=== PATIENT | female | born 2000 | race Hispanic/Latino ===

== ENCOUNTER 2020-10-17 18:22 | Emergency (ER) | payer BC, OTHER ==
[2020-10-17] MEDS ORDERED: Ketorolac 30 MG/ML SDV IM ONE (19:12)
--- NOTE | 2020-10-17 19:36 | EDM.PDOC ---
ED HPI GENERAL MEDICAL PROBLEM - General Chief Complaint: Neck Problem Stated Complaint: NECK PAIN/INJURY Time Seen by Provider: 10/17/20 18:58 Source of Information: Reports: Patient, RN Notes Reviewed History Limitations: Reports: No Limitations - History of Present Illness INITIAL COMMENTS - FREE TEXT/NARRATIVE: Patient is a 20-year-old female who presents to the ED for the evaluation of a neck injury. 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 Patient states she had immediate pain in the left side of her neck, and has subsequently been able to move her neck much at all due to a painful range of motion. Patient denies any jaw pain, no blurred vision double vision. She has a mild headache, neck stiffness, she is able to move all extremities without difficulty. She is not complaining of any numbness or tingling in the extremities. Patient denies any other sick-like symptoms, fever/chills, cough/shortness of breath, nausea/vomiting/diarrhea. Patient denies at this time. Neck Pain Score (Numeric/FACES): 8 - Related Data Allergies Allergy/AdvReac Type Severity Reaction Status Date / Time No Known Allergies Allergy Verified 10/17/20 19:01 Home Meds: Home Meds Orphenadrine [Norflex] 100 mg PO BID PRN #20 tab 10/17/20 [Rx] Past Medical History Neurological History: Reports: Concussion - Infectious Disease History Infectious Disease History: Reports: None - Past Surgical History HEENT Surgical History: Reports: Tonsillectomy Social & Family History - Family History Family Medical History: No Pertinent Family History - Tobacco Use Tobacco Use Status *Q: Never Tobacco User Second Hand Smoke Exposure: No - Caffeine Use Caffeine Use: Reports: Tea - Recreational Drug Use Recreational Drug Use: Yes Drug Use in Last 12 Months: Yes Recreational Drug Type: Reports: Marijuana/Hashish ED ROS GENERAL - Review of Systems Review Of Systems: Comprehensive ROS is negative, except as noted in HPI. ED EXAM, UPPER BACK/NECK PAIN - Physical Exam Exam: See Below Exam Limited By: No Limitations General Appearance: Alert, WD/WN, No Apparent Distress Eye Exam: Bilateral Eye: EOMI, Normal Inspection, PERRL Ears Exam: Normal External Exam, Normal Canal, Hearing Grossly Normal, Normal TMs Nose Exam: Normal Inspection Throat/Mouth Exam: Normal Inspection, Normal Lips, Normal Teeth, Normal Gums, Normal Oropharynx, Normal Voice, No Airway Compromise Head Exam: Atraumatic, Normocephalic Neck Exam: Limited Range of Motion (d/t pain and stiffness), Stiff Neck, Tenderness (to left lateral neck mainly) Nexus Criteria: Posterior, Midline Cervical Tenderness (slight). No: Evidence of Intoxication, Altered Level of Consciousness, Focal Neurological Deficit, Painful Distraction Injuries Cardiovascular/Respiratory: Regular Rate, Rhythm, No M/R/G, Normal Peripheral Pulses, No JVD, Normal Breath Sounds, No Respiratory Distress Extremities: Normal Inspection, Normal Capillary Refill Neurologic: hose maker II-XII nml As Tested, No Motor/Sensory Deficits, Alert, Normal Mood/Affect, Oriented x 3 Psychiatric: Normal Affect, Normal Mood Skin Exam: Normal Color, Warm/Dry Course - Vital Signs Last Recorded V/S: Last Vital Signs Temp 98.8 F 10/17/20 18:55 Pulse 70 10/17/20 18:55 Resp 20 10/17/20 18:55 BP 110/74 10/17/20 18:55 Pulse Ox 99 10/17/20 18:55 - Orders/Labs/Meds Orders: Active Orders 24 hr Category Date Time Status Influenza Vaccine Charge [RC] .DISCHARGE Care 10/17/20 19:11 Active Cervical Spine wo Cont [CT] Stat Exams 10/17/20 19:11 Ordered Orphenadrine [Norflex] Med 10/17/20 20:36 Once 100 mg PO ONETIME ONE Meds: Medications Discontinued Medications Generic Name Dose Route Start Last Admin Trade Name Tonya PRN Reason Stop Dose Admin Influenza Virus Vaccine 60 mcg 10/17/20 19:45 10/17/20 20:05 Fluzone Quad [id number] Syringe IM 10/17/20 19:46 60 mcg .ONCE ONE Administration Ketorolac Tromethamine 30 mg 10/17/20 19:12 10/17/20 19:25 Toradol IM 10/17/20 19:13 30 mg ONETIME ONE Administration - Re-Assessments/Exams Free Text/Narrative Re-Assessment/Exam: 10/17/20 19:35 Patient presents to the ED for evaluation of her neck injury. Due to her painful range of motion, and neck stiffness, I did discuss imaging with Dr. Campuzano, and he does recommend doing a neck CT if I would like to go forward with imaging. Have ordered CT of her cervical spine without contrast for further evaluation. 10/17/20 20:[address] has been performed, there is no sign of acute cervical spine injury. Patient was able to get some relief with the Toradol however range of motion is still fairly limited due to the stiffness. We will do 1 tablet on Norflex for ongoing management, get a prescription for these, have her stay home from sporting activities throughout the weekend, and reassess her situation on Tuesday. Patient verbalizes and understands plan. Departure - Departure Time of Disposition: 20:38 Disposition: Home, Self-Care 01 Condition: Good Clinical Impression: Acute strain of neck muscle Qualifiers: Encounter type: initial encounter Qualified Code(s): S16.1XXA - Strain of muscle, fascia and tendon at neck level, initial encounter - Discharge Information *PRESCRIPTION DRUG MONITORING PROGRAM REVIEWED*: No *COPY OF PRESCRIPTION DRUG MONITORING REPORT IN PATIENT KAREL: No Instructions: Cervical Sprain, [id number] Referrals: PCP,None [Primary Care Provider] - Forms: ED Department Discharge Additional Instructions: You have been evaluated in the ED for your left neck injury. Your neck CT demonstrated no acute fracture or other bony abnormalities. It is likely that you are suffering from an acute neck muscle strain, you were given a injection of Toradol which is an anti-inflammatory, and a muscle relaxer called Norflex for ongoing management. Please use ice/heat as tolerated to the affected area. You may take Tylenol 500 mg or ibuprofen 600mg q6 hrs for pain relief. Please do so until you have a tolerable level of pain with activity. Do not exceed 4000mg Tylenol or 3200mg ibuprofen in a 24 hour time period. Use the Norflex, 1 tablet 2 times a day as needed for further muscle spasm/strain/pain relief. This medicine can make you little sleepy, please monitor your use throughout the day, if it makes you sleepy, I would recommend that you use this mainly before bedtime. Please take it easy over the weekend, your neck should feel much better in a few days time. Please return to ED if your symptoms should change or worsen. Sepsis Event Note (ED) - Evaluation Sepsis Screening Result: No Definite Risk - Focused Exam Vital Signs: Vital Signs Temp Pulse Resp BP Pulse Ox 10/17/20 18:55 98.8 F 70 20 110/74 99 - My Orders Last 24 Hours: My Active Orders 10/17/20 19:11 Influenza Vaccine Charge [RC] .DISCHARGE Cervical Spine wo Cont [CT] Stat 10/17/20 20:36 Orphenadrine [Norflex] 100 mg PO ONETIME ONE - Assessment/Plan Last 24 Hours: My Active Orders 10/17/20 19:11 Influenza Vaccine Charge [RC] .DISCHARGE Cervical Spine wo Cont [CT] Stat 10/17/20 20:36 Orphenadrine [Norflex] 100 mg PO ONETIME ONE
[2020-10-17] MEDS ORDERED: FLU VACC QS2020-21(6MOS UP)/PF 60 MCG/0.5 ML SYRINGE IM ONE (19:45)
[2020-10-17] MEDS ORDERED: Orphenadrine 100 MG Tab.ER PO ONE (20:36)
--- NOTE | 2020-10-18 10:19 | CT ---
CT cervical spine Technique: Multiple axial sections were obtained from above C1 inferiorly to the top of T5-6. Reconstructed coronal and sagittal images were obtained. Findings: Vertebral body heights and disc spaces are maintained. No bony central or bony neural foraminal stenosis is seen. Visualized lung apices are clear. No acute fracture or subluxation is seen. Minimal mucosal thickening is seen within the left maxillary sinus. Impression: 1. No acute abnormality is identified on CT study of the cervical spine. 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
== END 2020-10-17 21:01 | disposition home or self-care (01) ==
LOC: JD.ED 18:22
DX: S16.1XXA Strain of muscle, fascia and tendon at neck level, initial encounter (principal); Z23 Encounter for immunization; W51.XXXA Accidental striking against or bumped into by another person, initial encounter; Y93.67 Activity, basketball
CPT/HCPCS: 72125; 90471; 90686; 96372; 99283; A9270; J1885; 99284; G0008